=== PATIENT | male | born 1975 | race Two or more races ===

== ENCOUNTER 2019-08-04 11:58 | Emergency (ER) | payer SELFPAY ==
[2019-08-04] MEDS ORDERED: fentaNYL PF VIAL 100 MCG/2 ML VIAL IV ONE (12:15)
[2019-08-04] MEDS ORDERED: ONDANSETRON PF 4 MG/2 ML VIAL. IV ONE (12:15)
[2019-08-04] MEDS ORDERED: IV NORMAL SALINE 1000ML BAG 1,000 ML IV SCH ×2 (12:15→16:00)
[2019-08-04 12:27] LABS: BASO % 0 % (0-3); EOS # 0.3 x10^3/uL (0.0-0.7); EOS % 2 % (0-3); HEMATOCRIT 39.9 % (39.0-53.0); HEMOGLOBIN 13.9 g/dL (13.0-17.5); LYMPH # 2.8 x10^3/uL (1.0-4.8); LYMPH % 21 % (24-48); MEAN CORPUSCULAR HEMOGLOBIN 32 pg (25-35); MEAN CORPUSCULAR HGB CONC 35 g/dL (31-37); MEAN CORPUSCULAR VOLUME 91 fL (79-100); MONO # 0.6 x10^3/uL (0.0-1.1); MONO % 4 % (0-9); NEUT # 10.2 x10^3/uL (1.8-7.7); NEUT % 74 % (31-73); PLATELET COUNT 296 x10^3/uL (140-400); RED BLOOD COUNT 4.37 x10^6/uL (4.30-5.70); RED CELL DISTRIBUTION WIDTH 13.1 % (11.5-14.5); WHITE BLOOD COUNT 13.9 x10^3/uL (4.0-11.0)
--- NOTE | 2019-08-04 12:30 | PHYS DOC ---
Past Medical History Past Medical History: No Pertinent History Adult General Chief Complaint Chief Complaint: Fall from roof HPI HPI Patient is a 43 year old [place]itanian-speaking male without history of medical problems who presents via POV with complaint of a fall from roof. Patient st ates he slipped from the roof of three-story building about 30 feet high and landed on his left upper and lower extremity without loss of consciousness. Patient complaining of pain in left hip and left wrist and rated his pain 10/10 and denies neck pain, back pain, nausea and vomiting. Patient complaining of numbness of left hand. Patient is up-to-date with tetanus immunization. Review of Systems Review of Systems Constitutional: Denies fever or chills [] Eyes: Denies change in visual acuity, redness, or eye pain [] HENT: Denies nasal congestion or sore throat [] Respiratory: Denies cough or shortness of breath [] Cardiovascular: No additional information not addressed in HPI [] GI: Denies abdominal pain, nausea, vomiting, bloody stools or diarrhea [] : Denies dysuria or hematuria [] Musculoskeletal: Denies back pain, reports joint pain [] Integument: Denies rash or skin lesions [] Neurologic: Denies headache, focal weakness, report sensory changes [] Endocrine: Denies polyuria or polydipsia [] All other systems were reviewed and found to be within normal limits, except as documented in this note. Current Medications Current Medications Current Medications Medications (Trade) Dose Ordered Sig/Anu Start Time Stop Time Status Last Admin Dose Admin Dexamethasone Sodium Phosphate (Decadron) 20 mg STK-MED ONCE 08/04/19 13:58 08/04/19 13:59 DC Fentanyl Citrate (Fentanyl 2ml Vial) 50 mcg 1X ONCE 08/04/19 14:15 08/04/19 14:16 DC 08/04/19 14:28 50 MCG Info (CONTRAST GIVEN -- Rx MONITORING) 1 each PRN DAILY PRN 08/04/19 12:45 08/06/19 12:44 Iohexol (Omnipaque 300 Mg/ml) 75 ml 1X ONCE 08/04/19 12:45 08/04/19 12:46 DC 08/04/19 12:42 75 ML Ondansetron HCl (Zofran) 4 mg STK-MED ONCE 08/04/19 13:58 08/04/19 13:59 DC Propofol 0 ml @ As Directed STK-MED ONCE 08/04/19 13:58 08/04/19 13:58 DC Sodium Chloride 1,000 ml @ 1,000 mls/hr 1X ONCE 08/04/19 14:15 08/04/19 15:14 DC 08/04/19 14:13 1,000 MLS/HR Allergies Allergies Allergies Coded Allergies Type Severity Reaction Last Updated Verified No Known Drug Allergies 08/04/19 No Physical Exam Physical Exam Constitutional: Well developed, well nourished, mild distress, non-toxic appearance. [] HENT: Normocephalic, atraumatic, bilateral external ears normal, oropharynx moist, no oral exudates, nose normal. [] Eyes: PERRLA, EOMI, conjunctiva normal, no discharge. [] Neck: Normal range of motion, no tenderness, supple, no stridor. [] Cardiovascular:Heart rate regular rhythm, no murmur [] Lungs & Thorax: Bilateral breath sounds clear to auscultation [] Abdomen: Bowel sounds normal, soft, no tenderness, no masses, no pulsatile masses. [] Skin: Warm, dry, no erythema, no rash. [] Back: No midline tenderness, no CVA tenderness. [] Extremities: Left wrist with deformity and tenderness, no neurovascular deficit, good radial pulse, left hip without deformity, limited range of motion because of pain, no neurovascular deficit. Neurologic: Alert and oriented X 3, normal motor function, normal sensory function, no focal deficits noted. [] Psychologic: Affect normal, mood normal. [] Current Patient Data Vital Signs Vital Signs Date Time Temp Pulse Resp B/P (MAP) Pulse Ox O2 Delivery O2 Flow Rate FiO2 08/04/19 14:28 20 08/04/19 12:29 96 Room Air Lab Values Laboratory Tests Test 08/04/19 12:15 08/04/19 13:58 White Blood Count 13.9 x10^3/uL (4.0-11.0) H Red Blood Count 4.37 x10^6/uL (4.30-5.70) Hemoglobin 13.9 g/dL (13.0-17.5) Hematocrit 39.9 % (39.0-53.0) Mean Corpuscular Volume 91 fL (79-100) Mean Corpuscular Hemoglobin 32 pg (25-35) Mean Corpuscular Hemoglobin Concent 35 g/dL (31-37) Red Cell Distribution Width 13.1 % (11.5-14.5) Platelet Count 296 x10^3/uL (140-400) Neutrophils (%) (Auto) 74 % (31-73) H Lymphocytes (%) (Auto) 21 % (24-48) L Monocytes (%) (Auto) 4 % (0-9) Eosinophils (%) (Auto) 2 % (0-3) Basophils (%) (Auto) 0 % (0-3) Neutrophils # (Auto) 10.2 x10^3/uL (1.8-7.7) H Lymphocytes # (Auto) 2.8 x10^3/uL (1.0-4.8) Monocytes # (Auto) 0.6 x10^3/uL (0.0-1.1) Eosinophils # (Auto) 0.3 x10^3/uL (0.0-0.7) Basophils # (Auto) 0.0 x10^3/uL (0.0-0.2) Prothrombin Time 13.0 SEC (11.7-14.0) Prothrombin Time INR 1.0 (0.8-1.1) Activated Partial Thromboplast Time 26 SEC (24-38) Sodium Level 140 mmol/L (136-145) Potassium Level 3.3 mmol/L (3.5-5.1) L Chloride Level 104 mmol/L (98-107) Carbon Dioxide Level 25 mmol/L (21-32) Anion Gap 11 (6-14) Blood Urea Nitrogen 14 mg/dL (8-26) Creatinine 0.9 mg/dL (0.7-1.3) Estimated GFR (Cockcroft-Gault) 92.5 BUN/Creatinine Ratio 16 (6-20) Glucose Level 137 mg/dL (70-99) H Calcium Level 8.3 mg/dL (8.5-10.1) L Total Bilirubin 0.5 mg/dL (0.2-1.0) Aspartate Amino Transferase (AST) 49 U/L (15-37) H Alanine Aminotransferase (ALT) 55 U/L (16-63) Alkaline Phosphatase 86 U/L (46-116) Total Protein 7.0 g/dL (6.4-8.2) Albumin 3.5 g/dL (3.4-5.0) Albumin/Globulin Ratio 1.0 (1.0-1.7) Ethyl Alcohol Level < 10 mg/dL (0-10) Urine Collection Type Unknown Urine Color Yellow Urine Clarity Clear Urine pH 5.5 Urine Specific [place] >=1.030 Urine Protein Negative mg/dL (NEG-TRACE) Urine Glucose (UA) Negative mg/dL (NEG) Urine Ketones (Stick) Negative mg/dL (NEG) Urine Blood Moderate (NEG) Urine Nitrite Negative (NEG) Urine Bilirubin Negative (NEG) Urine Urobilinogen Dipstick 0.2 mg/dL (0.2 mg/dL) Urine Leukocyte Esterase Negative (NEG) Urine RBC 11-20 /HPF (0-2) Urine WBC 1-4 /HPF (0-4) Urine Squamous Epithelial Cells Few /LPF Urine Transitional Epithelial Cells Few /LPF Urine Amorphous Sediment Present /HPF Urine Bacteria 0 /HPF (0-FEW) Urine Mucus Slight /LPF Urine Sperm Present /HPF Urine Opiates Screen Neg (NEG) Urine Methadone Screen Neg (NEG) Urine Barbiturates Neg (NEG) Urine Phencyclidine Screen Neg (NEG) Urine Amphetamine/Methamphetamine Neg (NEG) Urine Benzodiazepines Screen Neg (NEG) Urine Cocaine Screen Neg (NEG) Urine Cannabinoids Screen Neg (NEG) Urine Ethyl Alcohol Neg (NEG) Laboratory Tests 08/04/19 12:15 Laboratory Tests 08/04/19 12:15 EKG EKG [] Radiology/Procedures Radiology/Procedures [facility] [address] [place], [place] [id number] IMAGING REPORT Signed PATIENT: LENA CUIACCOUNT: [id number] : 1975 LOCATION: ER AGE: 43 SEX: M EXAM STATUS: PRE ER ORD. PHYSICIAN: BAKARI ANN MD REASON: Trauma activation PROCEDURE: CT HEAD AND CERVICAL SPINE WO CT HEAD AND CERVICAL SPINE WO Date: 08/04/2019 12:15 PM Clinical Indication: Pain, trauma Comparison: None. Technique: 5 mm axial tomographic images were obtained of the head without contrast. These were viewed on brain and bone windows. CT imaging of the cervical spine was performed without contrast. Coronal and sagittal reformatted images were performed. One or more of the following dose reduction techniques were utilized: Automated exposure control (AEC), Adjustment of mA and/or kV according to patient size, Use of iterative reconstruction technique such as ASiR, CT scan done according to ALARA and image gently/image wisely HEAD FINDINGS: The brain parenchyma is normal in attenuation. Mineralization of the basal ganglia. No intra- or extra-axial mass or fluid collection. No acute hemorrhage. The ventricles are normal in size, shape, and morphology. The garcia-white matter junction is normal. The basilar cisterns are patent. The visualized paranasal sinuses are normal. The visualized portions of the orbits and globes are normal. The mastoid air cells are clear. No aggressive osseous lesion or fracture. CERVICAL SPINE FINDINGS: The cervical spine is normally aligned. No acute fracture. No aggressive lytic or blastic osseous lesion. The intervertebral disc heights are maintained. No high-grade spinal canal stenosis or neural foraminal narrowing. The thyroid gland is normal. No cervical lymphadenopathy. The visualized aerodigestive tract is unremarkable. The visualized lung apices are clear. IMPRESSION: 1. No acute intracranial process. 2. No acute osseous abnormality of the cervical spine. Electronically signed by: David Yates MD (08/04/2019 12:59 PM) [id number] DICTATED and SIGNED BY: DAVID YATES MD DATE: 08/04/19 2040 Course & Med Decision Making Course & Med Decision Making Pertinent Labs and Imaging studies reviewed. (See chart for details) Evaluation of patient no showed 43-year-old male patient with a fall from almost 30 feet high without loss of consciousness. Trauma alert was activated on arrival of patient to ER. Dr Pal on-call surgeon was informed at 1218. Patient had left distal radial fracture and a splint was placed. Patient also had left femoral neck fracture and Dr Elizabeth was consulted at 1855 and recommended to admit patient to hospitalist and planned to take patient to the OR for left hip fracture surgery. CT of abdomen,chest and pelvis showed multiple fracture of the pelvis and Dr Elizabeth was informed again and presented to ER and recommended to transfer patient to [facility] with level [address] Isaiah Avila trauma surgeon at accepted transfer to [facility] at 1412. Patient had pelvic binder placement and several doses of fentanyl and 2 L of IV fluids with stable vital signs. Dragon Disclaimer Dragon Disclaimer This electronic medical record was generated, in whole or in part, using a voice recognition dictation system. Departure Departure Impression: Primary Impression: Pelvic ring fracture Additional Impressions: Hip fracture, left Fall from height of greater than 3 feet Fracture of left distal radius Hypokalemia Disposition: 05 TRANSFER OTHER ([facility] at 1412) Condition: GUARDED Critical Care Time Critical care time was 60 minutes exclusive of procedures. Problem Qualifiers Primary Impression: Pelvic ring fracture Encounter type: sequela Fracture type: closed Qualified Codes: S32.810S - Multiple fractures of pelvis with stable disruption of pelvic ring, sequela Additional Impressions: Hip fracture, left Encounter type: initial encounter Fracture type: closed Qualified Codes: S72.002A - Fracture of unspecified part of neck of left femur, initial encounter for closed fracture Fracture of left distal radius Encounter type: subsequent encounter Fracture type: closed Fracture morphology: unspecified fracture morphology Fracture healing: with routine healing Qualified Codes: S52.502D - Unspecified fracture of the lower end of left radius, subsequent encounter for closed fracture with routine healing BAKARI ANN MD Aug 04, 2019 12:30
[2019-08-04 12:35] LABS: CALCIUM 8.3 mg/dL (8.5-10.1); CREATININE 0.9 mg/dL (0.7-1.3); GFR 92.5; POTASSIUM 3.3 mmol/L (3.5-5.1)
[2019-08-04 12:43] LABS: ALBUMIN 3.5 g/dL (3.4-5.0); TOTAL BILIRUBIN 0.5 mg/dL (0.2-1.0)
[2019-08-04] MEDS ORDERED: IOHEXOL 300 MG/ML 100ML VIAL. IV ONE (12:45)
[2019-08-04] MEDS ORDERED: CONTRAST GIVEN. MC PRN (12:45)
--- NOTE | 2019-08-04 13:02 | RAD ---
CT HEAD AND CERVICAL SPINE WO Date: 08/04/2019 12:15 PM Clinical Indication: Pain, trauma Comparison: None. Technique: 5 mm axial tomographic images were obtained of the head without contrast. These were viewed on brain and bone windows. CT imaging of the cervical spine was performed without contrast. Coronal and sagittal reformatted images were performed. One or more of the following dose reduction techniques were utilized: Automated exposure control (AEC), Adjustment of mA and/or kV according to patient size, Use of iterative reconstruction technique such as ASiR, CT scan done according to ALARA and image gently/image wisely HEAD FINDINGS: The brain parenchyma is normal in attenuation. Mineralization of the basal ganglia. No intra- or extra-axial mass or fluid collection. No acute hemorrhage. The ventricles are normal in size, shape, and morphology. The garcia-white matter junction is normal. The basilar cisterns are patent. The visualized paranasal sinuses are normal. The visualized portions of the orbits and globes are normal. The mastoid air cells are clear. No aggressive osseous lesion or fracture. CERVICAL SPINE FINDINGS: The cervical spine is normally aligned. No acute fracture. No aggressive lytic or blastic osseous lesion. The intervertebral disc heights are maintained. No high-grade spinal canal stenosis or neural foraminal narrowing. The thyroid gland is normal. No cervical lymphadenopathy. The visualized aerodigestive tract is unremarkable. The visualized lung apices are clear. IMPRESSION: 1. No acute intracranial process. 2. No acute osseous abnormality of the cervical spine. Electronically signed by: Maurice Yates MD (08/04/2019 12:59 PM) [id number]
[2019-08-04] MEDS ORDERED: fentaNYL PF VIAL 100 MCG/2 ML VIAL IVP ONE ×3 (13:45→16:30)
--- NOTE | 2019-08-04 13:55 | RAD ---
Indications: Fall and pain THREE-VIEW LEFT WRIST STUDY: There is a severely comminuted splayed fracture of the distal left radial epiphysis and metaphysis with impaction and multiple fracture fragments. The articular surface of the radial carpal or articulation is disrupted. There is a positive ulnar variance is a result. No lytic process is seen. IMPRESSION: Posttraumatic. Comment fracture distal left radius. AP VIEW OF THE PELVIS AND TWO-VIEW STUDY OF THE LEFT HIP FINDINGS: There is a subcapital left femoral neck fracture. The neck is displaced superiorly, laterally and anteriorly with respect to the head. There is resultant varus deformity. The femoral head is normally located within the acetabular cup. There is diastases of the symphysis pubis of 2 cm. The left pubic bone is displaced superiorly with respect to the right pubic bone by 7.5 mm. No diastases of either SI joint is seen. There is a fracture of the superior aspect of the left sacrum. No lytic process is seen. IMPRESSION: Posttraumatic subcapital left femoral neck fracture with displacement. Diastases and displacement of the symphysis pubis. Fracture of the upper left sacrum. Electronically signed by: Shalom Grider MD (08/04/2019 1:53 PM) [facility] [place]
[2019-08-04] MEDS ORDERED: fentaNYL PF VIAL 100 MCG/2 ML VIAL ONE (13:58)
[2019-08-04] MEDS ORDERED: PROPOFOL 0 ML IV ONE (13:58)
[2019-08-04] MEDS ORDERED: DEXAMETHASONE SOD PHOS 20 MG/5 ML VIAL. ONE (13:58)
[2019-08-04] MEDS ORDERED: ONDANSETRON PF 4 MG/2 ML VIAL. ONE (13:58)
--- NOTE | 2019-08-04 14:03 | RAD ---
CT LUMBAR SPINE RECONSTRUCTION, CT CHEST ABD PELVIS W/CONTRAST Clinical Indication: Trauma, pain COMPARISON: None TECHNIQUE: Multiple contiguous axial images were obtained throughout the chest, abdomen, and pelvis with the use of IV contrast. Axial images were reformatted into coronal and sagittal planes. Dedicated multiplanar reconstructions of the lumbar spine were also obtained. 75 mL Isovue-370 was administered. One or more of the following dose reduction techniques were utilized: Automated exposure control (AEC), Adjustment of mA and/or kV according to patient size, Use of iterative reconstruction technique such as ASiR, CT scan done according to ALARA and image gently/image wisely. Findings: The thyroid is symmetric. There is no axillary, mediastinal, or hilar adenopathy. The thoracic aorta diameter is normal. The cardiac size is normal. Coronary artery atherosclerotic disease. There is no pericardial effusion. The central airways are patent. There is no focal consolidation. No pleural effusion is observed. There is no pneumothorax. The liver, gallbladder, spleen, pancreas, and adrenal glands are unremarkable. The kidneys are unremarkable. There is no significant mesenteric or retroperitoneal adenopathy identified. Visualized portions of the bowel are grossly unremarkable. Pelvis findings: The bladder and distal ureters are unremarkable. No significant iliac or inguinal adenopathy is identified. Acute comminuted fracture of the left sacral ala extending longitudinally along its length. Acute mildly displaced fracture of the left L5 transverse process. Diastases of the symphysis pubis measuring 1.4 cm. No widening of the sacroiliac joints. Acute left subcapital femoral neck fracture with anterior and proximal displacement. Presacral hematoma measuring approximately 5.0 x 2.5 x 15 cm (TV by AP by CC). This extends superiorly to the level of L4 and inferiorly along the left side of the rectum. Small amount of acute anterior pelvic extraperitoneal blood products. IMPRESSION: 1. Pelvic ring disruption with acute fractures of the left sacral ala and diastases of the symphysis pubis. Prominent presacral hematoma which extends superiorly to L4 and inferiorly tunnel on the left side of the rectum. 2. Acute displaced left femoral neck fracture. Acute mildly displaced left L5 transverse process fracture. 3. No evidence of traumatic mediastinal or pulmonary injury. No abdominal solid organ injury. 4. Coronary artery atherosclerotic disease. Findings were discussed with Dr. Yousif at 1:40 PM on 08/04/2019 FOR INTERNAL CODING PURPOSES RESULT CODE: (C) Electronically signed by: Maurice Yates MD (08/04/2019 2:00 PM) [id number]
[2019-08-04 14:08] LABS: BILIRUBIN,URINE NEGATIVE (NEG); CLARITY,URINE CLEAR; COLOR,URINE YELLOW; NITRITE,URINE NEGATIVE (NEG); PH,URINE 5.5; PROTEIN,URINE NEGATIVE (NEG-TRACE); UROBILINOGEN,URINE 0.2 mg/dL (0.2 mg/dL)
[2019-08-04 14:15] LABS: BARBITURATES NEG (NEG); BENZODIAZEPINES NEG (NEG); CANNABINOIDS NEG (NEG); COCAINE NEG (NEG); METHADONE NEG (NEG); OPIATES NEG (NEG); PHENCYCLIDINE NEG (NEG)
[2019-08-04] MEDS ORDERED: IV NORMAL SALINE 1000ML BAG 1,000 ML IV ONE (14:15)
[2019-08-04 14:17] LABS: AMPHETAMINE/METHAMPHETAMINE NEG (NEG)
[2019-08-04 14:23] LABS: AMORPHOUS SEDIMENT,UR PRESENT /HPF; BACTERIA,URINE 0 /HPF (0-FEW); SPERM,URINE PRESENT /HPF; SQUAMOUS EPITHELIAL CELL,UR FEW /LPF
== END 2019-08-04 16:29 | disposition short-term general hospital (02) ==
LOC: EDBD 11:58 → SURG 11:58
DX: S72.092A Other fracture of head and neck of left femur, initial encounter for closed fracture (principal); S52.592A Other fractures of lower end of left radius, initial encounter for closed fracture; S32.810S Multiple fractures of pelvis with stable disruption of pelvic ring, sequela; E87.6 Hypokalemia; Z79.899 Other long term (current) drug therapy; W13.2XXA Fall from, out of or through roof, initial encounter; Y93.89 Activity, other specified; Y92.89 Other specified places as the place of occurrence of the external cause; Y99.8 Other external cause status
CPT/HCPCS: 36415; 70450; 71260; 72125; 73110; 73502; 74177; 80053; 80307; 81001; 85025; 85610; 85730; 96374; 96375; 96376; 99285; G0480; J2405; J3010; J7030; Q9967; J1100; J2704